=== PATIENT | female | born 1960 | race Caucasian/White ===

== ENCOUNTER → 2024-06-13 08:41 | Outpatient (REF) | payer OTHER, SELFPAY | LOC: HWWDC 08:41 | PROVIDERS: ATTENDING PHYSICIAN Obstetrics & Gynecology Gynecology; FAMILY PHYSICIAN Family Medicine | DX: Z12.31 Encounter for screening mammogram for malignant neoplasm of breast (principal) | CPT/HCPCS: 77063; 77067 ==

== ENCOUNTER → 2024-12-13 12:53 | Outpatient (REF) | payer MEDICARE, SELFPAY | LOC: EMG 12:53 | PROVIDERS: ATTENDING PHYSICIAN Orthopaedic Surgery Hand Surgery; FAMILY PHYSICIAN Family Medicine | DX: M79.641 Pain in right hand (principal); R20.0 Anesthesia of skin; G56.01 Carpal tunnel syndrome, right upper limb | CPT/HCPCS: 95886; 95909 ==

== ENCOUNTER → 2025-07-21 14:17 | Outpatient (REF) | payer MEDICARE, SELFPAY | LOC: WDC 14:17 | PROVIDERS: ATTENDING PHYSICIAN Obstetrics & Gynecology Gynecology; FAMILY PHYSICIAN Family Medicine | DX: Z12.31 Encounter for screening mammogram for malignant neoplasm of breast (principal) | CPT/HCPCS: 77063; 77067 ==

== ENCOUNTER → 2025-09-17 12:43 | Outpatient (REF) | payer MEDICARE, SELFPAY | LOC: EMG 12:43 | PROVIDERS: ATTENDING PHYSICIAN Orthopaedic Surgery Hand Surgery; FAMILY PHYSICIAN Family Medicine | DX: M79.602 Pain in left arm (principal); R20.2 Paresthesia of skin; R20.0 Anesthesia of skin | CPT/HCPCS: 95886; 95909 ==